=== PATIENT | male | born 1940 | race Caucasian/White ===

== ENCOUNTER 2023-08-18 15:35 | Emergency (ER) | payer MEDICARE, OTHER, SELFPAY ==
[2023-08-18 15:40] VITALS: BP 135/82; PULSE 92; RESP 18; TEMP 36.6; O2SAT 95; BMI 23.9
--- NOTE | 2023-08-18 15:57 | EDS_ITS ---
HPI History of Present Illness Chief Complaint: Guerra C/O Informant: patient Narrative Narrative: Patient presents secondary to leaking around his Guerra catheter. He is a Guerra catheter in place secondary to urinary retention. He states it was changed out yesterday at [facility]. He currently has an [address] He states he is leaking urine where the catheter inserts into his penis. He states this has happened previously and they had to go to a larger size. When he asked for a larger size catheter yesterday at [place] they did not have any available. [facility] Medical History Enlarged prostate Allergy/AdvReac Type Severity Reaction Status Date / Time niacin Allergy Other Verified 08/18/23 15:40 Surgical History (Updated 08/18/23 @ 15:49 by Bisi Colindres) H/O heart artery stent Social History Smoking Status: Former smoker ROS ROS ED Constitutional Constitutional ED: Denies chills or fever(s) Eyes Eyes: Denies discharge from eye(s) ENT ENT ED: Denies discharge from eye(s), rhinorrhea or sore throat Cardiovascular Cardiovascular: Denies chest pain or palpitations Respiratory/Chest Respiratory/Chest: Denies cough Gastrointestinal Gastrointestinal: Denies abdominal pain Genitourinary Genitourinary ED: Reports other Details: Leaking around Guerra catheter Musculoskeletal Musculoskeletal: Denies back pain or extremity pain Integumentary Denies Abrasions or rash Neurologic Neurologic: Denies headache(s) or weakness Allergic/Immunologic Allergic/Immunologic ED: Denies lip swelling or urticaria EXAM Physical Exam Const Vital Signs: 08/18/23 15:40 Temperature 97.8 F Temperature Source Temporal Pulse Rate 92 Respiratory Rate 18 Blood Pressure 135/82 H Blood Pressure Mean 99 Pulse Ox 95 Oxygen Delivery Method Room Air Positive well nourished and well developed General Appearance ED: well developed HEENT Reports moist mucous membranes Eyes EOMs intact bilaterally Resp normal respiratory effort and clear to auscultation bilaterally Cardio regular rate and regular rhythm GI non-tender Palpation: soft Narrative: Patient currently has an 18 Russian [address] catheter in place. Clear yellow urine noted in Guerra bag. Neuro oriented x3 Psych mental status grossly normal MDM MDM MDM Narrative Medical decision making narrative: I have asked nursing staff to switch out Guerra catheter to a larger size. Nursing staff was able to replace the 18 Russian catheter with a 22 Russian cath at this time. When I would go back to reevaluate the patient he is standing at bedside fully dressed and ready to go home. Return instructions were given and he will follow-up with Dr. Hugo as scheduled. Discharge Plan Triage Chief Complaint: Guerra C/O ED Provider: Deanna Ann Dx/Rx/DC Orders Clinical Impression: Guerra catheter problem Instructions: ED Guerra Catheter, Care Primary Care Provider: Preet Oliver NP Referrals: Merrill Hugo MD [Med Staff - Active Staff] - Keep Jade appointment Preet Oliver NP, PIPE TESTING TECHNICIAN-C [Primary Care Provider] - Print Language: [place] Islander Disposition Disposition: Home, Self Care
== END 2023-08-18 16:41 | disposition home or self-care (01) ==
PROVIDERS: Emergency Provider Emergency Medicine; PCP Nurse Practitioner Primary Care; Visit Provider Emergency Medicine
DX: T83.031A Leakage of indwelling urethral catheter, initial encounter (principal); X58.XXXA Exposure to other specified factors, initial encounter; N40.1 Benign prostatic hyperplasia with lower urinary tract symptoms; R33.8 Other retention of urine; Z87.891 Personal history of nicotine dependence
CPT/HCPCS: 51702; 99283; A4216

== ENCOUNTER 2023-09-23 10:24 | Observation (INO) | payer MEDICARE, OTHER, SELFPAY ==
[2023-09-23] VITALS (15 sets, daily range): BP systolic 120–144; BP diastolic 46–73; PULSE 62–83; RESP 16–18; TEMP 36.2–37.1; O2SAT 93–100; BMI 22.8
[2023-09-23] MEDS: Lactated Ringers 1,000 ML 15 ML IV (06:57)
--- NOTE | 2023-09-23 07:04 | PRE.ANES_ITS ---
ASA Classification* ASA Classification ASA Classification: 3 Assessment & Plan Anesthesia* Anesthesia Assessment Anesthesia Assessment: Discussed sedation and/or anesthesia options, risks, benefits, and alternatives with patient/parents/legal guardian/POA. Questions invited. The patient/parents/legal guardian/POA seems to understand and agrees to proceed with anesthesia plan. Reviewed the physical assessment, medical history, allergy history and patient home medications list prior to surgery/procedure/anesthetic and documented any changes. Performed airway and anesthesia risk assessments. Anesthesia Type Anesthesia Type: General (see written pre anesthesia record for full assessment) Anesthesia Focused Assessment* Temperature: 98.2 F Pulse Rate: 82 Blood Pressure: 120/73 Respiratory Rate: 16 Pulse Ox: 96 Airway Assessment Mouth opens: >3 cm Mallampati Score: II Focused Labs Anesthesia Preop lab: CBC CHEMISTRY COAG Pre-Assessment Diagnosis/Proposed Procedure Planned Operative Procedure(s): Cysto,Transurethral Resection Prostate with Olympus Anesthesia History Anesthesia History - government operations consultant: Anesthesia History - government operations consultant Hx Hospitalization Yes 09/19/23 10:24 Any Problems With Anesthesia Yes: LOW BP 09/19/23 10:24 Cholinesterase deficiency No 09/19/23 10:24 You/Your Family Experience No 09/19/23 10:24 fever (hyperthermia) with Relationship Recent Exposure to Contagious No 09/23/23 06:30 Disease Does patient have nerve No 09/19/23 10:24 stimulator Patient instructed to have device shut off --Does patient have Pacemaker No 09/23/23 06:30 or ICD? When Was Last Pacemaker Check QUESTION #4 FULL TEXT: You/Your Family Experience fever (hyperthermia) with Anesthesia Last Oral Intake Last Oral intake: Last Oral Intake NPO since 20:00 09/23/23 06:30 Meds taken in AM with sips of Yes 09/23/23 06:30 water? Meds patient instructed to AMLODIPINE 09/23/23 06:30 take am of surgery PANTOPRAZOL ENALAPRIL PONV PONV - government operations consultant: PONV - government operations consultant Female No 09/19/23 10:24 HX of Motion Sickness No 09/19/23 10:24 HX of N/V After Surgery No 09/19/23 10:24 Non-Smoker Yes 09/19/23 10:24 Duration of Surgery greater Yes 09/19/23 10:24 than 60 minutes Number of Risk Factors 2 09/19/23 10:24 PONV Score Moderate Risk 09/19/23 10:24 Height & Weight Height & Weight: Anesthesia: Height & Weight Height 5 ft 10 in 09/23/23 06:30 Weight: 72.121 kg 09/23/23 06:30 Body Mass Index (BMI) 22.8 09/23/23 06:30 Respiratory Assessment Respiratory Assessment - government operations consultant: Respiratory Tract Infection Hx - government operations consultant Hx Respiratory Tract Infection No 09/19/23 10:24 STOP Sleep Apnea STOP Sleep Apnea - government operations consultant: STOP Sleep Apnea - government operations consultant Hx Hypertension Yes: CONTROLLED ON MED 09/19/23 10:24 Hx Sleep Apnea No 09/19/23 10:24 CPAP BIPAP Do you snore loudly (louder No 09/19/23 10:24 than talking or can be heard Do you often feel tired/ No 09/19/23 10:24 fatigued/ sleepy during daytime? Has anyone observed you stop No 09/19/23 10:24 breathing during sleep? STOP Results Negative 09/19/23 10:24 QUESTION #5 FULL TEXT : Do you snore loudly (louder than talking or can be heard through closed doors)? Tobacco Use History Tobacco Use History - government operations consultant: Tobacco Use History - government operations consultant Tobacco Use Smoking Status Former smoker 09/19/23 10:24 Hx Tobacco Use No 09/19/23 10:24 Years Smoking Packs Smoked per Day Smoking Cessation Date was No - quit smoking greater 09/19/23 10:24 within the last 15 years than 15 years ago Hx Smoking Cessation Date Hx Smoking Cessation Counseling Hematologic Medial History Hematologic Hx - government operations consultant: Hematologic Medical Hx - documentation engineer Hx of Blood Transfusion No 09/19/23 10:24 Hx of Transfusion in last 3 No 09/19/23 10:24 Months Date of Last Transfusion (if within last 3 months) Ever experience any problems No 09/19/23 10:24 with transfusion(s)? Specify any problems Hx of Preganancy in last 3 N/A 09/19/23 10:24 Months Nurse Filling Out Transfusion VCHRISTIN 09/19/23 10:24 & Questions: Date: 09/19/23 09/19/23 10:24 Time: 10:26 09/19/23 10:24 Patient unable to answer at this time (ie. confused, unrespo /Reproduction History /Reproductive History - government operations consultant: /Reproductive Hx- government operations consultant Hx Now Gestational Age (in weeks): EDC: Hx Hx Para Hx Section SAB Active Medications Active Medications: Current Medications Generic Name Dose Route Start Last Admin Trade Name Freq PRN Reason Stop Dose Admin Cefazolin Sodium 2 gm/ Sodium 110 mls @ 150 mls/hr 09/23/23 08:35 Chloride IV 09/23/23 09:18 PREOP ONE Lactated Ringer's 1,000 mls @ 15 mls/hr 09/23/23 06:30 09/23/23 06:57 IV 15 mls/hr .Q48H TANI Administration PFSH Medical History Wears dentures Wears glasses Anxiety Alcohol use Arthritis High cholesterol Easy bruising Excessive bleeding Back pain Blackout Gastric reflux Former smoker History of echocardiogram History of stress test Hypertension Cardiology follow-up encounter Enlarged prostate Home Medications ?Medication ?Instructions ?Recorded ?Last Taken ?Type allopurinol 100 mg tablet 100 mg PO DAILY 09/19/23 09/22/23 History amlodipine 2.5 mg tablet 2.5 mg PO BID 09/19/23 09/23/23 History clopidogrel 75 mg tablet 75 mg PO DAILY 09/19/23 09/08/23 History diltiazem HCl 120 mg 120 mg PO DAILY 09/19/23 Unknown History capsule,extended release 24 hr enalapril maleate 20 mg tablet 20 mg PO BID 09/19/23 09/23/23 History pantoprazole 40 mg tablet,delayed 40 mg PO DAILY 09/19/23 09/23/23 History release pravastatin 40 mg tablet 40 mg PO QHS 09/19/23 09/22/23 History quetiapine 25 mg tablet 25 mg PO QHS 09/19/23 09/22/23 History sertraline 50 mg tablet 50 mg PO QHS 09/19/23 09/22/23 History tamsulosin 0.4 mg capsule 0.4 mg PO QHS 09/19/23 09/22/23 History docusate sodium 100 mg capsule 100 mg PO DAILY PRN PRN 09/23/23 Unknown History CONSTIPATION Allergy/AdvReac Type Severity Reaction Status Date / Time niacin Allergy Other Verified 09/19/23 10:09 Surgical History History of cardiac catheterization Hx of colonoscopy History of laparoscopic cholecystectomy History of back surgery H/O heart artery stent Social History Smoking Status: Former smoker Review of Systems (Anesthesia) ROS Narrative System reviewed and no additional complaints, except as documented.
--- NOTE | 2023-09-23 07:17 | HP.PCM_ITS ---
[facility] - General General Date of Service: 09/23/23 Chief Complaint: Urinary retention [facility] Narrative PAT BAE, is a 83 M who presents for a transurethral resection of the prostate has a history of BPH with obstruction had a UroLift procedure in the past he presented with retention of urine he has obstructions organ to proceed with a transurethral resection of the prostate. He has been off Plavix and he will be instructed to stay off Plavix for least 2 weeks afterwards. [facility] Medical History Wears dentures Wears glasses Anxiety Alcohol use Arthritis High cholesterol Easy bruising Excessive bleeding Back pain Blackout Gastric reflux Former smoker History of echocardiogram History of stress test Hypertension Cardiology follow-up encounter Enlarged prostate Home Medications ?Medication ?Instructions ?Recorded ?Last Taken ?Type allopurinol 100 mg tablet 100 mg PO DAILY 09/19/23 09/22/23 History amlodipine 2.5 mg tablet 2.5 mg PO BID 09/19/23 09/23/23 History clopidogrel 75 mg tablet 75 mg PO DAILY 09/19/23 09/08/23 History diltiazem HCl 120 mg 120 mg PO DAILY 09/19/23 Unknown History capsule,extended release 24 hr enalapril maleate 20 mg tablet 20 mg PO BID 09/19/23 09/23/23 History pantoprazole 40 mg tablet,delayed 40 mg PO DAILY 09/19/23 09/23/23 History release pravastatin 40 mg tablet 40 mg PO QHS 09/19/23 09/22/23 History quetiapine 25 mg tablet 25 mg PO QHS 09/19/23 09/22/23 History sertraline 50 mg tablet 50 mg PO QHS 09/19/23 09/22/23 History tamsulosin 0.4 mg capsule 0.4 mg PO QHS 09/19/23 09/22/23 History docusate sodium 100 mg capsule 100 mg PO DAILY PRN PRN 09/23/23 Unknown History CONSTIPATION Allergy/AdvReac Type Severity Reaction Status Date / Time niacin Allergy Other Verified 09/19/23 10:09 Surgical History History of cardiac catheterization Hx of colonoscopy History of laparoscopic cholecystectomy History of back surgery H/O heart artery stent Social History Smoking Status: Former smoker Vital Signs Vital Signs Vital Signs: 09/23/23 06:30 09/23/23 06:30 09/23/23 07:04 Temperature 98.2 F 98.2 F Temperature Source Temporal Pulse Rate 82 82 Respiratory Rate 16 16 Respiratory Pattern Normal Blood Pressure 120/73 120/73 Blood Pressure Mean 88 Blood Pressure Source Monitor Blood Pressure Position Semi-Fowlers Blood Pressure Location Left Arm Pulse Ox 96 96 Oxygen Delivery Method Room Air Weight Weight: 72.121 kg Body Mass Index (BMI) 22.8
--- NOTE | 2023-09-23 07:33 | DCINST_ITS ---
Discharge Instructions Diet Discharge Diet: Light diet - advance as tolerated Activity Discharge Activity: Return to Normal Activity Dressing / Incision Call your doctor if your incision/area has: - (Unable to void) Suture Line Care: Avoid Pulling/Pushing and Avoid Pinching/Bending Cleanse incision/area with: Soap & Water Follow Up Care Please Follow Up With: Merrill Hugo MD When: call for appt. Test Results: Test results from this visit will be discussed in further detail at your follow- up appointment, if applicable. Discharge Plan Admission Primary Reason for Your Visit: turp Attending Provider: Merrill Hugo Primary Care Provider: Preet Oliver NP Instructions Patient Instructions: TURP, TURP Home Recovery, TURP Hospital Recovery Print Language: Estonian Discharge Orders/Prescriptions Prescriptions: New cephalexin 500 mg capsule 500 mg PO TID Qty: 10 0RF ibuprofen 600 mg tablet 600 mg PO Q6H PRN (Reason: fever or pain) Qty: 20 0RF Continued quetiapine 25 mg tablet 25 mg PO QHS pravastatin 40 mg tablet 40 mg PO QHS enalapril maleate 20 mg tablet 20 mg PO BID amlodipine 2.5 mg tablet 2.5 mg PO BID allopurinol 100 mg tablet 100 mg PO DAILY pantoprazole 40 mg tablet,delayed release (DR/EC) 40 mg PO DAILY diltiazem HCl 120 mg capsule,extended release 24hr 120 mg PO DAILY Patient Comments: NEW MED, HAS NOT YET ARRIVED FROM [facility]. sertraline 50 mg tablet 50 mg PO QHS docusate sodium 100 mg capsule 100 mg PO DAILY PRN PRN (Reason: CONSTIPATION) Held clopidogrel 75 mg tablet 75 mg PO DAILY Hold Instructions: Resume on 10/07/23. Discontinued tamsulosin 0.4 mg capsule 0.4 mg PO QHS Referrals / Follow Up: Merrill Hugo MD [Med Staff - Active Staff] - Preet Oliver NP, CUSTOMER SUCCESS ASSOCIATE-C [Primary Care Provider] - Disposition Disposition (needs filled in before D/C Order can be placed): Home, Self Care
[2023-09-23] MEDS: Cefazolin 2 GM in 0.9% Normal Saline (100mL Bag) 100 ML IV (08:19)
--- NOTE | 2023-09-23 09:01 | PCM.OPRPT ---
Report of Operation Date of Procedure: 09/23/23 Pre-Operative Diagnosis: BPH with obstruction Post-Operative Diagnosis: The same Surgery/Procedure Performed:: Transurethral section of prostate Description of Surgical Findings:: Patient takeback to the operating room with induction of anesthesia the Guerra catheter was removed has a history of BPH with obstruction he developed tension of urine he had a UroLift procedure in the past so today we will proceed with a TURP for his retention of urine. Patient was placed in dorsolithotomy position the penis and testicles were prepped and draped in usual fashion went in the bladder with a Olympus bipolar resectoscope I then used the button and then started with the resection of the prostate with the button vaporization at the bladder neck working my way back to the verumontanum worked my way to the right side I came across to UroLift clips that were then removed and then continued resecting the right lobe of the prostate and then resected the left lobe of the prostate I resected open the bladder neck and had a nice wide open channel we did a flow test I also removed 2 UroLift clips from the left side of the prostate. After complete resection with the button Olympus resectoscope, I did a flow test had a wide open flow three-way catheter was put into the bladder for irrigation overnight and will take out the catheter tomorrow morning for voiding trial. Surgeon: Merrill Hugo Type of Anesthesia: General Drains: [address] Admit VTE Documentation VTE Present on Admission: No VTE Mechan Device Prophylaxis: SCD's VTE Pharm Prophylaxis ordered?: No
[2023-09-23] MEDS: 0.9% Normal Saline (1000mL) 1,000 ML 150 ML IV ×3 (09:24→23:55)
[2023-09-23] MEDS: Ketorolac 15 MG/ML Vial IV (09:24)
--- NOTE | 2023-09-23 10:33 | CASEMGMT ---
Pt has a DC order placed for tomorrow after he voids. This RN CM to pt room at this time. Pt states that he lives at home with his and that he is independent and drives. Pt states that he feels safe returning home at time of DC. Pt denies the need for HHC or OP therapy. Pt denies further questions or concerns at this time.
--- NOTE | 2023-09-23 11:05 | PCM.POST.ANE ---
Anesthesia: Postop Eval I Current Vital Signs Temperature: 97.2 F Pulse Rate: 71 Blood Pressure: 121/52 Respiratory Rate: 16 Pulse Ox: 100 Oxygen Delivery Method: Room Air Assessment Airway patent: Yes Spontaneous unlabored respirations: Yes Mental status: Awake and Calm nausea: No Vomiting: No Anesthesia Complication: No Fluid Hydration Crystalloid volume administer (ml): 700 Total IV fluid infused: 700 Progress Note Anesthesia document: Postop Eval 1 completed: Yes
[2023-09-23] MEDS: Allopurinol 100 MG Tablet PO (12:57)
[2023-09-23] MEDS: Docusate Sodium 100 MG Capsule 200 MG PO ×2 (12:57→21:09)
[2023-09-23] MEDS: dilTIAZem CD 120 MG Capsule PO (12:57)
[2023-09-23] MEDS: Docusate Sodium 100 MG Capsule PO (12:57)
--- NOTE | 2023-09-23 13:11 | POSTOPAN2_ITS ---
Anesthesia Postop Eval I Sum Postop Eval Completion status Anesthesia document: Postop Eval 1 completed: Yes Anesthesia Postop Eval I Summary Anesthesia Postop Eval I Summary: Anesthesia Postop Eval I: Assessment Summary Airway patent Yes 09/23/23 11:06 6TH [email or web address] Spontaneous unlabored Yes 09/23/23 11:06 6TH [email or web address] respirations Mental status Awake,Calm 09/23/23 11:06 6TH [email or web address] [email or web address] nausea No 09/23/23 11:06 6TH GRADE [email or web address] Vomiting No 09/23/23 11:06 6TH [email or web address] [email or web address] Anesthesia Postop Eval I: Fluid Summary Crystalloid volume administer 700 09/23/23 11:06 6TH GRADE TEACHER.MDOT (ml) Colloids volume administered ( ml) Blood Product volume administered (ml) Total IV fluid infused 700 09/23/23 11:06 6TH [email or web address] Anesthesia Postop Eval I: Summary Notes Anesthesia Complication No 09/23/23 11:06 6TH [email or web address] [email or web address] Anesthesia Complication Comment: Post-operative progress note Anesthesia: Postop Eval II Evaluation Mental status: Awake and Calm Pain Level: 1 nausea: No Vomiting: No Complications Anesthesia Complication: No
--- NOTE | 2023-09-23 13:11 | PCM.POSTANE2 ---
Anesthesia Postop Eval I Sum Postop Eval Completion status Anesthesia document: Postop Eval 1 completed: Yes Anesthesia Postop Eval I Summary Anesthesia Postop Eval I Summary: Anesthesia Postop Eval I: Assessment Summary Airway patent Yes 09/23/23 11:06 [email or web address] Spontaneous unlabored Yes 09/23/23 11:06 [email or web address] respirations Mental status Awake,Calm 09/23/23 11:06 [email or web address] nausea No 09/23/23 11:06 [email or web address] [email or web address] Vomiting No 09/23/23 11:06 [email or web address] [email or web address] Anesthesia Postop Eval I: Fluid Summary Crystalloid volume administer 700 09/23/23 11:06 FLORAL DESIGNER.MDOT (ml) Colloids volume administered ( ml) Blood Product volume administered (ml) Total IV fluid infused 700 09/23/23 11:06 [email or web address] [email or web address] Anesthesia Postop Eval I: Summary Notes Anesthesia Complication No 09/23/23 11:06 [email or web address] [email or web address] Anesthesia Complication Comment: Post-operative progress note Anesthesia: Postop Eval II Evaluation Mental status: Awake and Calm Pain Level: 1 nausea: No Vomiting: No Complications Anesthesia Complication: No
[2023-09-23] MEDS: Cefazolin 1 GM/50 ML BAG IV (16:20)
[2023-09-23] MEDS: amLODIPine 2.5 MG Tablet PO (21:10)
[2023-09-23] MEDS: Lisinopril 20 MG Tablet PO (21:10)
[2023-09-23] MEDS: QUEtiapine 25 MG Tablet PO (21:10)
[2023-09-23] MEDS: Pravastatin 40 MG Tablet PO (21:10)
[2023-09-23] MEDS: Sertraline 50 MG Tablet PO (21:12)
[2023-09-24] MEDS: Cefazolin 1 GM/50 ML BAG IV (00:06)
[2023-09-24 03:35] VITALS: BP 158/65; PULSE 61; RESP 16; TEMP 36.5; O2SAT 98; BMI 22.8
[2023-09-24] MEDS: 0.9% Normal Saline (1000mL) 1,000 ML 150 ML IV (06:47)
[2023-09-24 06:48] VITALS: BP 151/73; PULSE 70; RESP 16; TEMP 36.5; O2SAT 98; BMI 22.8
--- NOTE | 2023-09-24 08:02 | PCM.PN.GU ---
Subjective Subjective urine clear trotter removed home after is able to void Objective Data Objective Data Vital Signs: Vital Signs Temp Pulse Resp BP Pulse Ox O2 Del Method 97.7 F L 70 16 151/73 H 98 Room Air 09/24/23 06:48 09/24/23 06:48 09/24/23 06:48 09/24/23 06:48 09/24/23 06:48 09/24/23 06:48 Oxygen Delivery Method Room Air Weight: 72.121 kg Body Mass Index (BMI) 22.8 Intake & Output: Intake and Output for Last 24 Hours 09/22/23 09/23/23 09/24/23 23:59 23:59 23:59 Intake Total 4315 / 4315 1350 / 1350 Output Total 4100 / 4100 600 / 600 Balance 215 / 215 750 / 750
[2023-09-24 09:16] VITALS: BP 144/61; PULSE 82; RESP 18; TEMP 36.4; O2SAT 99
[2023-09-24] MEDS: dilTIAZem CD 120 MG Capsule PO (09:40)
[2023-09-24] MEDS: amLODIPine 2.5 MG Tablet PO (09:40)
[2023-09-24] MEDS: Docusate Sodium 100 MG Capsule 200 MG PO (09:40)
[2023-09-24] MEDS: Allopurinol 100 MG Tablet PO (09:40)
[2023-09-24] MEDS: Pantoprazole Sodium 40 MG Tablet PO (09:40)
[2023-09-24] MEDS: Lisinopril 20 MG Tablet PO (09:41)
[2023-09-24 10:52] VITALS: O2SAT 94
== END 2023-09-24 10:57 | disposition home or self-care (01) ==
LOC: SDC 10:31 → MS3 10:31
PROVIDERS: Admitting Provider Urology; PCP Nurse Practitioner Primary Care; Referring Provider Urology; Visit Provider Urology
PROC: 0VT08ZZ Resection of Prostate, Via Natural or Artificial Opening Endoscopic (ICD-10-PCS; CPT 52601; principal; 2023-09-23 08:25)
DX: N40.1 Benign prostatic hyperplasia with lower urinary tract symptoms (principal); I10 Essential (primary) hypertension; E78.00 Pure hypercholesterolemia, unspecified; Z87.891 Personal history of nicotine dependence; N13.8 Other obstructive and reflux uropathy; Z79.82 Long term (current) use of aspirin; Z79.899 Other long term (current) drug therapy; Z79.02 Long term (current) use of antithrombotics/antiplatelets; R33.8 Other retention of urine; K21.9 Gastro-esophageal reflux disease without esophagitis; F41.9 Anxiety disorder, unspecified
CPT/HCPCS: 52601; 00914; 94668; 96361; 96365; 96366; 99221; J7030; J7120; G0378; J2405